=== PATIENT | female | born 1985 | race Caucasian/White ===

== ENCOUNTER 2019-05-26 19:48 | Emergency (ER) | payer SELFPAY ==
[~2019-05-26] VITALS: Ht 170.2 cm; Wt 96.0 kg
[2019-05-26] MEDS ORDERED: OXYMETAZOLINE HCL NASAL SPRAY 15ML BOTHNSTRLS SCH (23:00)
[2019-05-26] MEDS ORDERED: CLONIDINE 0.2MG TABLET PO ONE (23:15)
[2019-05-27 00:06] VITALS: BP 177/91
== END 2019-05-27 00:06 | disposition home or self-care (01) ==
LOC: ER 19:48
DX: I16.1 Hypertensive emergency (principal)
CPT/HCPCS: 99283